=== PATIENT | female | born 1995 | race Two or more races ===

== ENCOUNTER 2022-08-12 20:54 | Observation (INO) | payer BC ==
[~2022-08-12 20:54] MED LIST: Iopamidol-370 76% 500 ML MDV (1 ML CHARGE) ONE
[2022-08-12] MEDS ORDERED: Ondansetron PF 4 MG/2 ML Vial ONE (21:00)
[2022-08-12] MEDS ORDERED: fentaNYL 50 mcg/mL 1 mL Vial ONE ×3 (21:00→22:33)
[2022-08-12] MEDS ORDERED: Morphine 4 MG/ML VIAL ONE (21:33)
[2022-08-12 21:36] LABS: Hemoglobin 12.8 g/dL (12.0-16.0); Mean Corpuscular HGB CONC 34.3 g/dL (32.0-36.0); Mean Corpuscular Hemoglobin 30.5 pg (27.0-31.0); Mean Corpuscular Volume 88.8 fl (78.0-98.0); Mean Platelet Volume 10.1 fL (7.4-10.4); Platelet Count 327 10x3/uL (130-400); RBC Distribution Width 13.2 % (11.5-14.5); White Blood Cell (WBC) Count 18.4 10x3/uL (4.8-10.8)
[2022-08-12 21:44] LABS: Delete Auto Diff?? YES; Manual Diff?? YES
[2022-08-12 22:02] LABS: ALT (SGPT) 15 U/L (8-55); AST (SGOT) 26 U/L (5-34); Albumin 4.2 g/dL (3.5-5.0); Alkaline Phosphatase 32 U/L (40-110); Anion Gap 12 mmol/L (10-20); BUN (Urea Nitrogen) 12 mg/dL (7.0-18.7); Bilirubin, Total Less than 0.2 mg/dL (0.2-1.2); Calc. Creatinine Clearance 0 mL/min (70-130); Calcium 9.7 mg/dL (7.8-10.44); Carbon Dioxide 23 mmol/L (22-29); Chloride 104 mmol/L (98-107); Estimated GFR 102; Glucose 100 mg/dL (70-105); Potassium 3.9 mmol/L (3.5-5.1); Protein, Total 7.2 g/dL (6.0-8.3); Sodium 135 mmol/L (136-145)
[2022-08-12 22:03] LABS: BHCG - Serum Negative (NEGATIVE); Pregs Control Background? CLEAR/WHITE (CLR/WHITE); Pregs Control Bar Appear? YES (CONTROL BAR)
[2022-08-12 22:08] LABS: Anisocytosis SLIGHT = 6-15 cells HPF (0-5); Band 9 % (5-11); CellaVision Operator ID LAB.CLH1; Eosinophils 2 % (0-10); Lymphocytes 18 % (21-51); Monocytes 4 % (0-10); Neutrophil 66 % (42-75); Platelet Adequacy Comment Platelets Normal; Reactive Lymphocytes 1 % (0-10); Total Cell Count 100
[2022-08-12] MEDS ORDERED: PROPOFOL 20 ML ONE (22:29)
[2022-08-12] MEDS ORDERED: Ketamine 50 MG/ML (10ML VIAL) ONE (22:46)
[2022-08-12] MEDS ORDERED: Ondansetron PF 4 MG/2 ML Vial IVP PRN (22:57)
[2022-08-12] MEDS ORDERED: Glucagon 1 MG/ML KIT IM PRN (22:57)
[2022-08-12] MEDS ORDERED: Ipratropium/Albuterol 3 ML NEB NEB PRN (22:57)
[2022-08-12] MEDS ORDERED: Ondansetron ODT 4 MG TAB PO PRN (22:57)
[2022-08-12] MEDS ORDERED: Morphine 4 MG/ML VIAL SLOW IVP PRN (22:57)
[2022-08-12] MEDS ORDERED: Dextrose 50% Abboject 50 ML SYRINGE SLOW IVP PRN (22:57)
[2022-08-12] MEDS ORDERED: hydrALAZINE 20 MG/ML VIAL SLOW IVP PRN (22:57)
[2022-08-12] MEDS ORDERED: Dextrose 5% in Water 1,000 ML IV PRN (22:57)
[2022-08-12] MEDS ORDERED: Sodium Chloride 0.9% 1,000 ML IV SCH (23:00)
[2022-08-12] MEDS ORDERED: traMADol HCl 50 MG TAB PO PRN (23:01)
[2022-08-12] MEDS ORDERED: Cyclobenzaprine 10 MG TAB PO PRN (23:01)
[2022-08-12] MEDS ORDERED: Gabapentin 100 MG CAP PO SCH (23:15)
[2022-08-13] MEDS: Acetaminophen 500 MG TAB PO SCH ×5 (00:54→23:14)
[2022-08-13] MEDS: traMADol HCl 50 MG TAB PO SCH ×5 (00:55→23:14)
[2022-08-13] MEDS: Ketorolac Tromethamine 30 MG/ML VIAL IVP SCH ×5 (00:57→23:13)
[2022-08-13] MEDS: Gabapentin 100 MG CAP PO SCH ×3 (05:32→21:05)
[2022-08-13 06:11] LABS: #Basophils 0.1 thou/uL (0.0-0.2); #Neutrophils 8.8 thou/uL (1.40-6.50); %Basophils 0.4 % (0.0-1.0); %Eosinophils 0.1 % (0.0-10.0); %Lymphocytes 27.1 % (21.0-51.0); Hemoglobin 11.7 g/dL (12.0-16.0); Mean Corpuscular HGB CONC 33.3 g/dL (32.0-36.0); Mean Corpuscular Hemoglobin 30.6 pg (27.0-31.0); Mean Platelet Volume 9.7 fL (7.4-10.4); Platelet Count 252 10x3/uL (130-400); RBC Distribution Width 13.3 % (11.5-14.5); Red Blood Cell (RBC) Count 3.82 mill/uL (4.20-5.40); White Blood Cell (WBC) Count 13.5 10x3/uL (4.8-10.8)
[2022-08-13 06:13] LABS: Mean Corpuscular Volume 91.9 fl (78.0-98.0)
[2022-08-13 06:32] LABS: Anion Gap 12 mmol/L (10-20); BUN (Urea Nitrogen) 7 mg/dL (7.0-18.7); Calc. Creatinine Clearance 116 mL/min (70-130); Calcium 8.5 mg/dL (7.8-10.44); Carbon Dioxide 22 mmol/L (22-29); Chloride 106 mmol/L (98-107); Estimated GFR 123; Glucose 108 mg/dL (70-105); Potassium 3.6 mmol/L (3.5-5.1); Sodium 136 mmol/L (136-145)
[2022-08-13] MEDS: Famotidine 20 MG TAB PO SCH ×2 (07:28→21:05)
[2022-08-13] MEDS ORDERED: CEFAZOLIN 2 GM in Sodium Chloride 0.9% 100 ML IVPB SCH (07:45)
[2022-08-13] MEDS: Morphine 2 MG/ML VIAL SLOW IVP PRN ×2 (12:23→19:26)
[2022-08-13] MEDS ORDERED: Midazolam HCl 2 mg/2 ml Vial ONE (13:23)
[2022-08-13] MEDS ORDERED: Bupivacaine PF 0.5% 30 ML VIAL ONE (13:23)
[2022-08-13] MEDS ORDERED: fentaNYL 50 mcg/mL 1 mL Vial ONE ×2 (13:23→14:13)
[2022-08-13] MEDS ORDERED: Bupivacaine HCl 0.5%/Epinephrine 1:200,000/PF 30 ml Vial ONE (13:40)
[2022-08-13] MEDS ORDERED: Famotidine/PF 20 mg/2ml Vial ONE (14:13)
[2022-08-13] MEDS ORDERED: fentaNYL PF 100 MCG/2 ML SYRINGE ONE (14:26)
[2022-08-13] MEDS ORDERED: CEFAZOLIN 2 GM VIAL ONE (14:35)
[2022-08-13] MEDS ORDERED: Sodium Chloride 0.9% 100 ML ONE (14:35)
[2022-08-13] MEDS ORDERED: Ondansetron PF 4 MG/2 ML Vial ONE (14:51)
[2022-08-13] MEDS ORDERED: Dexamethasone 20 MG/5 ML VIAL ONE (14:51)
[2022-08-13] MEDS ORDERED: PROPOFOL 200 MG/20 ML VIAL ONE (14:51)
[2022-08-13] MEDS ORDERED: Scopolamine 1.5 mg/72 hour Patch TOP PRN (18:53)
[2022-08-13] MEDS ORDERED: Promethazine HCl 25 MG/ML VIAL IM PRN (18:56)
[2022-08-13] MEDS ORDERED: hydrOXYzine 25 MG TAB PO SCH (21:00)
[2022-08-13] MEDS: CEFAZOLIN 2 GM in Sodium Chloride 0.9% 100 ML IVPB SCH (21:04)
[2022-08-14 00:43] VITALS: TEMP 98.1
[2022-08-14] MEDS: CEFAZOLIN 2 GM in Sodium Chloride 0.9% 100 ML IVPB SCH (05:17)
[2022-08-14] MEDS: Acetaminophen 500 MG TAB PO SCH ×3 (05:17→17:38)
[2022-08-14] MEDS: Gabapentin 100 MG CAP PO SCH ×2 (05:17→14:56)
[2022-08-14] MEDS: Ketorolac Tromethamine 30 MG/ML VIAL IVP SCH (05:18)
[2022-08-14] MEDS: traMADol HCl 50 MG TAB PO SCH ×3 (05:18→17:39)
[2022-08-14] MEDS ORDERED: PARoxetine 20 MG TAB PO SCH (09:00)
[2022-08-14] MEDS ORDERED: Loratadine 10 MG TAB PO SCH (09:00)
[2022-08-14] MEDS: Famotidine 20 MG TAB PO SCH (09:34)
[2022-08-14 11:53] VITALS: BP 99/64
[2022-08-14] MEDS ORDERED: Ibuprofen 200 MG TAB PO SCH (14:00)
[2022-08-14] MEDS ORDERED: Aripiprazole 10 MG TAB PO SCH (21:00)
== END 2022-08-14 18:00 | disposition home or self-care (01) ==
LOC: ERS 20:54 → SURG B 23:01
PROVIDERS: ADMIT Specialist; ATTEND Specialist
PROC: 0QHJ06Z Insertion of Intramedullary Internal Fixation Device into Right Fibula, Open Approach (ICD-10-PCS; principal; 2022-08-13)
PROC: 0QHG06Z Insertion of Intramedullary Internal Fixation Device into Right Tibia, Open Approach (ICD-10-PCS; 2022-08-13)
DX: S82.251A Displaced comminuted fracture of shaft of right tibia, initial encounter for closed fracture (principal); S82.451A Displaced comminuted fracture of shaft of right fibula, initial encounter for closed fracture; F41.8 Other specified anxiety disorders; F43.10 Post-traumatic stress disorder, unspecified; G89.11 Acute pain due to trauma; E28.2 Polycystic ovarian syndrome; Z90.89 Acquired absence of other organs; Z79.899 Other long term (current) drug therapy; W17.89XA Other fall from one level to another, initial encounter; Y93.31 Activity, mountain climbing, rock climbing and wall climbing
CPT/HCPCS: 27752; 27781; 36415; 70450; 71260; 72125; 74177; 80048; 80053; 84703; 85025; 86850; 86900; 86901; 96365; 96366; 96372; 96374; 96375; 96376; C1713; G0378; J1100; J1650; J1885; J2250; J2270; J2272; J2405; J2550; J2704; J3010; J3490; J7050; Q0162; Q9967; S0020; S0028